=== PATIENT | female | born 1995 | race Caucasian/White ===

== ENCOUNTER 2017-11-14 08:50 | Outpatient (CLI) | payer OTHER ==
--- NOTE | 2017-11-14 10:39 | Ultrasound Report ---
Reason: ELEVATED CREATININE Procedure Date: 11/14/2017 Accession Number: [id number] / [id number] Procedure: US - Retroperitoneal CPT Code: FULL RESULT: EXAM: RENAL ULTRASOUND EXAM DATE: 11/14/2017 10:30 AM. CLINICAL HISTORY: Elevated creatinine COMPARISON: None. TECHNIQUE: Real-time scanning was performed with static images obtained. FINDINGS: Right Kidney: 11.0 cm. Normal echotexture with no stones, contour-deforming masses, or hydronephrosis. Left Kidney: 9.7 cm. Normal echotexture with no stones, contour-deforming masses, or hydronephrosis. Bladder: Bilateral jets seen. The prevoid bladder volume was 514 cc. The postvoid bladder volume was 51 cc. IMPRESSION: Negative renal ultrasound. [facility]
== END 2017-11-14 08:51 | disposition home or self-care (01) ==
LOC: DI 08:50
PROVIDERS: ATTEND Registered Nurse
DX: E28.2 Polycystic ovarian syndrome (principal); R79.89 Other specified abnormal findings of blood chemistry
CPT/HCPCS: 76770

== ENCOUNTER 2020-03-11 13:00 | Outpatient (CLI) | payer OTHER | END 2020-03-11 23:59 | disposition home or self-care (01) | LOC: LAB.S 13:00 | PROVIDERS: ATTEND Physician Assistant Medical | DX: R22.1 Localized swelling, mass and lump, neck (principal) | CPT/HCPCS: 87070 ==

== ENCOUNTER 2023-10-10 08:00 | Outpatient (CLI) | payer MEDICAID ==
[2023-10-10 20:35] LABS: H. PYLORIS ANTIGEN STL NEGATIVE (Negative)
== END 2023-10-10 23:59 | disposition home or self-care (01) ==
LOC: LAB.S 08:00
PROVIDERS: ATTEND Physician Assistant Medical
DX: R10.9 Unspecified abdominal pain (principal)
CPT/HCPCS: 87045; 87046; 87177; 87209; 87338; 87427

== ENCOUNTER 2023-10-10 13:29 | Outpatient (CLI) | payer MEDICAID ==
[2023-10-10 19:52] LABS: BASOPHILS % (AUTO) 0.5 %; EOSINOPHILS % (AUTO) 0.6 %; HCT - HEMATOCRIT 36.4 % (37.0-47.0); HGB - HEMOGLOBIN 12.1 g/dL (12.0-16.0); LYMPHOCYTES # (AUTO) 2.8 10^3/uL (1.5-3.5); LYMPHOCYTES % (AUTO) 42.4 %; MEAN CORPUSCULAR HEMOGLOBIN 29.2 pg (27.0-31.0); MEAN CORPUSCULAR HGB CONC 33.2 g/dL (32.0-36.0); MEAN CORPUSCULAR VOLUME 87.9 fL (81.0-99.0); MEAN PLATELET VOLUME 10.5 fL (7.9-10.8); MONOCYTES # (AUTO) 0.3 10^3/uL (0.0-1.0); MONOCYTES % (AUTO) 5.2 %; NEUTROPHILS # (AUTO) 3.4 10^3/uL (1.5-6.6); NEUTROPHILS % (AUTO) 51.1 %; PLT - PLATELET COUNT 205 10^3/uL (130-450); RED BLOOD COUNT 4.14 10^6/uL (4.20-5.40); RED CELL DISTRIBUTION WIDTH 12.8 % (12.0-15.0); WHITE BLOOD COUNT 6.6 x10^3/uL (4.8-10.8)
[2023-10-10 20:06] LABS: ALBUMIN 4.4 g/dL (3.2-5.5); ALBUMIN/GLOBULIN RATIO 1.8 (1.0-2.2); BILIRUBIN,TOTAL 0.7 mg/dL (0.2-1.0); CALCIUM 9.3 mg/dL (8.5-10.3); CREATININE 0.8 mg/dL (0.6-1.3); POTASSIUM 3.9 mmol/L (3.5-4.5); TOTAL PROTEIN 6.8 g/dL (6.4-8.9)
== END 2023-10-10 13:30 | disposition home or self-care (01) ==
LOC: LAB.S 13:29
PROVIDERS: ATTEND Physician Assistant Medical
DX: R10.9 Unspecified abdominal pain (principal)
CPT/HCPCS: 36415; 80053; 85025; 87086; 87329